=== PATIENT | female | born 1975 | race Caucasian/White ===

== ENCOUNTER 2019-10-31 13:40 | Emergency (ER) | payer OTHER ==
[2019-10-31 13:57] VITALS: PULSE 85
[2019-10-31] MEDS ORDERED: amLODIPine 5 MG Tab PO ONE (14:25)
[2019-10-31 14:36] VITALS: BP 146/102
--- NOTE | 2019-10-31 14:36 | EDM.PDOC ---
ED HPI GENERAL MEDICAL PROBLEM - General Chief Complaint: Cardiovascular Problem Stated Complaint: HIGH BLOOD PRESSURE Time Seen by Provider: 10/31/19 14:02 Source of Information: Reports: Patient History Limitations: Reports: No Limitations - History of Present Illness INITIAL COMMENTS - FREE TEXT/NARRATIVE: Patient is a 44-year-old female who presents with complaints of high blood pressure. She states that she checked her blood pressure at home and the bottom number was around 120. She does have a history of high blood pressure with her pregnancies and was recently told at her annual exam with her RIVETING MACHINE OPERATOR that her blood pressure was still elevated and that she should schedule an appointment with a primary care provider to establish treatment. Patient states that she was unable to get in till next Sunday with LINCOLN Lawson and didn't want to wait that long to start treatment. Her only symptom is that she feels some "fullness" in her head which she states is common for her when she has an elevated blood pressure. She denies any dizziness, headache, or vision changes. - Related Data Allergies Allergy/AdvReac Type Severity Reaction Status Date / Time No Known Allergies Allergy Verified 10/31/19 13:57 Home Meds: Home Meds amLODIPine [Norvasc] 5 mg PO DAILY #10 tab 10/31/19 [Rx] Past Medical History - Past Health History Medical/Surgical History: Denies Medical/Surgical History - Past Surgical History HEENT Surgical History: Reports: Tonsillectomy Female Surgical History: Reports: Breast Reduction, Section Social & Family History - Tobacco Use Smoking Status *Q: Never Smoker - Caffeine Use Caffeine Use: Reports: Coffee, Soda ED ROS GENERAL - Review of Systems Review Of Systems: See Below Constitutional: Reports: No Symptoms. Denies: Fever, Chills HEENT: Reports: No Symptoms. Denies: Vision Change Respiratory: Reports: No Symptoms Cardiovascular: Reports: No Symptoms Endocrine: Reports: No Symptoms GI/Abdominal: Reports: No Symptoms : Reports: No Symptoms Musculoskeletal: Reports: No Symptoms Skin: Reports: No Symptoms Neurological: Reports: No Symptoms, Other ("fullness" in her head). Denies: Dizziness, Headache Psychiatric: Reports: No Symptoms Hematologic/Lymphatic: Reports: No Symptoms Immunologic: Reports: No Symptoms ED EXAM, GENERAL - Physical Exam Exam: See Below Exam Limited By: No Limitations General Appearance: Alert, WD/WN, No Apparent Distress Head: Atraumatic, Normocephalic Respiratory/Chest: No Respiratory Distress, Lungs Clear, Normal Breath Sounds, No Accessory Muscle Use, Chest Non-Tender Cardiovascular: Normal Peripheral Pulses, Regular Rate, Rhythm, No Edema, No Murmur Neurological: Alert, Oriented, Normal Cognition Psychiatric: Normal Affect, Normal Mood Skin Exam: Warm, Dry, Intact, Normal Color, No Rash Course - Vital Signs Last Recorded V/S: Last Vital Signs Temp 98.2 F 10/31/19 13:53 Pulse 85 10/31/19 13:53 Resp 18 10/31/19 13:53 BP 188/118 H 10/31/19 13:53 Pulse Ox 98 10/31/19 13:53 - Orders/Labs/Meds Meds: Medications Discontinued Medications Generic Name Dose Route Start Last Admin Trade Name Alanna PRN Reason Stop Dose Admin Amlodipine Besylate 5 mg 10/31/19 14:25 Norvasc PO 10/31/19 14:26 ONETIME ONE - Re-Assessments/Exams Free Text/Narrative Re-Assessment/Exam: Patient is a 44-year-old female who presents with complaints of an elevated blood pressure today. She states that she checked it at home and the bottom number was around 120 which was concerning for her. Looking back in her records from the clinic her previous blood pressure reading was 150/100 on October 13. Her initial blood pressure reading in the ER was 168/118. The last blood pressure reading was 146/102. We'll start the patient on amlodipine 5 mg daily. I will give her enough pills to get her through until she sees LINCOLN Lawson on Sunday of next week. First dose was given in the ER today. Discharge instructions as documented. Departure - Departure Time of Disposition: 14:36 Disposition: Home, Self-Care 01 Condition: Good Clinical Impression: Hypertension Qualifiers: Hypertension type: unspecified Qualified Code(s): I10 - Essential (primary) hypertension Prescriptions: amLODIPine [Norvasc] 5 mg PO DAILY #10 tab Instructions: Hypertension Referrals: Cailin Qureshi NP [Primary Care Provider] - Kenyetta Ortega PA-C [Physician Oxide Furnace Tender] - Additional Instructions: You were seen in the emergency department today with an elevated blood pressure. You were given amlodipine 5 mg today in the ER. A prescription for this medication has also been sent to [facility] in [place]. Take this once daily. There are enough tabs to get she threw until you see Kenyetta Ortega. We also recommend that you check your blood pressures daily and keep a log to take with to your appointment with Kenyetta. If you should experience any symptoms of headache, dizziness, or vision changes please return to the emergency department. Sepsis Event Note - Evaluation Sepsis Screening Result: No Definite Risk - Focused Exam Vital Signs: Vital Signs Temp Pulse Resp BP Pulse Ox 10/31/19 13:53 98.2 F 85 18 188/118 H 98 Date Exam was Performed: 10/31/19 Time Exam was Performed: 14:30
== END 2019-10-31 14:56 | disposition home or self-care (01) ==
LOC: JD.ED 13:40
DX: I10 Essential (primary) hypertension (principal)
CPT/HCPCS: 99283; A9270

== ENCOUNTER 2021-07-05 08:23 | Day surgery (SDC) | payer OTHER ==
[~2021-07-05 08:23] MED LIST: Lactated Ringers 1,000 ML IV SCH; Lidocaine 1%/Sod Bicarbonate in NS 8.4% 1 ML Syringe IDERM PRN; Sodium Chloride 0.9% 10 ML Syringe FLUSH PRN
[2021-07-05] MEDS ORDERED: Sodium Chloride 0.9% 50 ML SDV ONE (08:30)
[2021-07-05] MEDS ORDERED: Bupivacaine 0.5% 30 ML SDV ONE (08:30)
[2021-07-05] MEDS ORDERED: Lidocaine 1% with EPINEPHrine 1:100,000 10 ML MDV ONE (08:30)
[2021-07-05] MEDS ORDERED: Scopolamine 1.5 MG Transdermal Patch TOP ONE (08:55)
--- NOTE | 2021-07-05 08:55 | PCM.PREANE ---
Preanesthetic Assessment - Procedure Proposed Procedure: Laparoscopic assisted vaginal hysterectomy with bilateral salpingectomy, possible total abdominal hysterectomy - Anesthesia/Transfusion/Family Hx Anesthesia History: Prior Anesthesia Without Reaction Family History of Anesthesia Reaction: No Transfusion History: No Prior Transfusion(s) Intubation History: Unknown - Review of Systems General: No Symptoms Pulmonary: No Symptoms Cardiovascular: No Symptoms Gastrointestinal: No Symptoms Neurological: No Symptoms Other: Reports: Anxiety - Physical Assessment NPO Status Date: 07/04/21 NPO Status Time: 21:00 Vital Signs: BP 138/100 HR 93 97.6 RR 16 97% Height: 1.6 m Weight: 73 kg ASA Class: 2 Mental Status: Alert & Oriented x3 Airway Class: Mallampati = 2 Dentition: Reports: Normal Dentition, Caries Thyro-Mental Finger Breadths: 3 Mouth Opening Finger Breadths: 2 ROM/Head Extension: Full Lungs: Clear to Auscultation, Normal Respiratory Effort Cardiovascular: Regular Rate, Regular Rhythm, No Murmurs - Lab Values: Labs reviewed and okay to proceed - Imaging/EKG Impressions: EKG NSR HR 65 - Allergies Allergies/Adverse Reactions: Allergies Allergy/AdvReac Type Severity Reaction Status Date / Time No Known Allergies Allergy Verified 10/31/19 13:57 - Blood Blood Available: No Product(s) Available: None - Anesthesia Plan Pre-Op Medication Ordered: Other (Scope patch) - Acknowledgements Anesthesia Type Planned: General Anesthesia Pt an Appropriate Candidate for the Planned Anesthesia: Yes Alternatives and Risks of Anesthesia Discussed w Pt/Guardian: Yes Pt/Guardian Understands and Agrees with Anesthesia Plan: Yes Additional Comments: Discussed elevated diastolic pressure and the patient taking losartan this morning with SARAH Mack since he will be taking care of patient intra- operatively.He is okay with proceeding with case. PreAnesthesia Questionnaire - Past Health History Medical/Surgical History: Denies Medical/Surgical History Cardiovascular History: Reports: High Cholesterol, Hypertension Respiratory History: Reports: None Gastrointestinal History: Reports: None Genitourinary History: Reports: None CHROME POLISHER History: Reports: Fibroids, Spontaneous Neurological History: Reports: Migraines Psychiatric History: Reports: Anxiety Endocrine/Metabolic History: Reports: None Hematologic History: Reports: None Immunologic History: Reports: None Oncologic (Cancer) History: Reports: None Other Dermatologic History: neoplasm of skin lesion - Past Surgical History HEENT Surgical History: Reports: Tonsillectomy Female Surgical History: Reports: Breast Reduction, Section, Cervical Conization - SUBSTANCE USE Tobacco Use Status *Q: Never Tobacco User Second Hand Smoke Exposure: No Days Per Week of Alcohol Use: 0 Number of Drinks Per Day: 0 Total Drinks Per Week: 0 Recreational Drug Use History: No - HOME MEDS Home Medications: Home Meds amLODIPine [Norvasc] 5 mg PO DAILY #10 tab 10/31/19 [Rx] - CURRENT (IN HOUSE) MEDS Current Meds: Current Medications Lactated Ringer's (Ringers, Lactated) 1,000 mls @ 125 mls/hr IV ASDIRECTED NOEL Stop: 07/05/21 23:00 Lidocaine/Sodium Bicarbonate (Lidocaine 1%/Sod Bicarbonate In Ns 8.4% 1 Ml Syringe) 0.25 ml IDERM ONETIME PRN PRN Reason: Prior to IV Start Stop: 07/05/21 18:00 Sodium Chloride (Sodium Chloride 0.9% 10 Ml Syringe) 10 ml FLUSH ASDIRECTED PRN PRN Reason: Keep Vein Open Stop: 07/05/21 18:00 Discontinued Medications Bupivacaine HCl (Bupivacaine 0.5% 30 Ml Sdv) Confirm Administered Dose 30 ml .ROUTE .STK-MED ONE Stop: 07/05/21 08:31 Lidocaine/Epinephrine (Lidocaine 1% With Epinephrine 1:100,000 10 Ml Mdv) Confirm Administered Dose 10 ml .ROUTE .STK-MED ONE Stop: 07/05/21 08:31 Sodium Chloride (Sodium Chloride 0.9% 50 Ml Sdv) Confirm Administered Dose 50 ml .ROUTE .STK-MED ONE Stop: 07/05/21 08:31
[2021-07-05] MEDS ORDERED: fentaNYL 250 MCG/5 ML SDV ONE (09:19)
[2021-07-05] MEDS ORDERED: Ketorolac 30 MG/ML SDV ONE (09:19)
[2021-07-05] MEDS ORDERED: Propofol 200 MG/20 ML SDV ONE (09:19)
[2021-07-05] MEDS ORDERED: Ondansetron 4 MG/2 ML SDV ONE (09:19)
[2021-07-05] MEDS ORDERED: Rocuronium 50 MG/5 ML Vial ONE (09:19)
[2021-07-05] MEDS ORDERED: Lidocaine 1% 4 ML ONE (09:19)
[2021-07-05] MEDS ORDERED: Midazolam 1 MG/ML 2 ML SDV ONE (09:19)
[2021-07-05] MEDS ORDERED: ceFAZolin 1 GM Vial ONE (09:20)
[2021-07-05] MEDS ORDERED: HYDROmorphone 0.5 MG/0.5 ML Syringe ONE ×2 (09:49→09:50)
[2021-07-05] MEDS ORDERED: Lactated Ringers 1,000 ML ONE (09:56)
[2021-07-05] MEDS ORDERED: Dexamethasone 4 MG/ML 5 ML MDV ONE (09:58)
[2021-07-05] MEDS ORDERED: Ondansetron 4 MG/2 ML SDV IVPUSH PRN (10:32)
[2021-07-05] MEDS ORDERED: Acetaminophen/oxyCODONE 325-5 MG Tab PO PRN (10:32)
--- NOTE | 2021-07-05 10:38 | PCM.OPNOTE ---
- General Post-Op/Procedure Note Date of Surgery/Procedure: 07/05/21 Operative Procedure(s): Total vaginal hysterectomy with bilateral salpingectomy Findings: Uterus is approximately 3 times normal size. Multiple uterine fibroids present. Right ovary had a 4 cm simple cyst present. Blood-tinged fluid present within the cyst at the time of drainage. Left ovary looked normal. Fallopian tubes were normal. Pre Op Diagnosis: 1. Menorrhagia. 2. Abnormal uterine bleeding. 3. Uterine fibroids Post-Op Diagnosis: Same Anesthesia Technique: General ET Tube Other Anesthesia Type: Lidocaine with [id number] cclocal Primary Surgeon: Viral Jolly Secondary Surgeon: See Calle Anesthesia Provider: Frederick Lyn Reason Dry Wall Installer Was Necessary: Assistance, retraction, patient safety, quality of care. Pathology: Uterus and bilateral tubes in the same specimen container. Fluid Replacement, Intraop: 1,700 EBL in mLs: 100 Complications: None Condition: Good Free Text/Narrative:: Surgery duration: 38 minutes Procedure: The patient was placed in supine position on the operating table. General endotracheal anesthesia was accomplished. After positioning, and adequate prep and drape, the procedure was then performed. Sterile speculum was placed in the vagina and cervix was visualized. Cervix was injected with lidocaine quarter percent with epinephrine-20 mL used. A full circumference incision was made in the cervical epithelium. The bladder was pushed well back off cervix. Posterior cul-de-sac was then entered sharply without problems. Left uterosacral was crossclamped with a Enseal vessel closure system. The left uterosacral and then the right uterosacral ligament pedicles were developed using the Enseal system. The anterior cul-de-sac was then entered without problems and the uterine vasculature, cardinal ligament and broad ligament then developed using Enseal vessel closure system. The uterus was inverted at this time and upper broad ligament fallopian tube pedicles were crossclamped with Radha clamps. Specimen was totally removed. Both these pedicles were then secured with Enseal vessel closure system. Left and right fallopian tube was normal in appearance. Using Enseal vessel closure system each of the tubes was then removed and sent with the specimen. The patient was found to be hemostatically intact at this time. Vaginal cuff was sutured for hemostatic reasons with a running locked suture of 0 Monocryl from the 2 o'clock position to the 10 o'clock position posteriorly. Vaginal cuff was then closed from right to left side with a running locked suture of 0 Monocryl. Patient was returned to supine position and awakened from general endotracheal anesthesia. She tolerated the procedure and left the operating room in satisfactory condition.
[2021-07-05] MEDS ORDERED: HYDROmorphone 0.5 MG/0.5 ML Syringe IVPUSH PRN (10:45)
--- NOTE | 2021-07-05 10:46 | PCM.POSTAN ---
POST ANESTHESIA ASSESSMENT - MENTAL STATUS Mental Status: Somnolent - VITAL SIGNS Vital Signs: Last Vital Signs Temp 36.4 C 07/05/21 08:20 Pulse 93 07/05/21 08:20 Resp 16 07/05/21 08:20 BP 138/100 H 07/05/21 08:20 Pulse Ox 97 07/05/21 08:20 - RESPIRATORY Respiratory Status: Respiratory Rate WNL, Airway Patent, O2 Saturation Stable, Supplemental Oxygen - CARDIOVASCULAR CV Status: Pulse Rate WNL, Blood Pressure Stable - GASTROINTESTINAL GI Status: No Symptoms - PAIN Pain Score: 0 - POST OP HYDRATION Hydration Status: Adequate & Stable - OBSERVATIONS Free Text/Narrative:: no anesthesia complications noted
[2021-07-05] MEDS: fentaNYL 100 MCG/2 ML SDV IVPUSH PRN ×2 (11:00→11:21)
--- NOTE | 2021-07-05 11:46 | PCM48HPAN ---
Post Anesthesia Note - EVALUATION WITHIN 48HRS OF ANESTHETIC Vital Signs in Normal Range: Yes Patient Participated in Evaluation: Yes Respiratory Function Stable: Yes Airway Patent: Yes Cardiovascular Function Stable: Yes Hydration Status Stable: Yes Pain Control Satisfactory: Yes Nausea and Vomiting Control Satisfactory: Yes Mental Status Recovered: Yes Vital Signs: Last Vital Signs Temp 36.7 C 07/05/21 10:38 Pulse 74 07/05/21 11:33 Resp 12 07/05/21 11:33 BP 115/79 07/05/21 11:33 Pulse Ox 95 07/05/21 11:33 - COMMENTS/OBSERVATIONS Free Text/Narrative:: no anesthesia complications noted
[2021-07-05] MEDS ORDERED: Ketorolac 30 MG/ML SDV IVPUSH SCH (15:30)
[2021-07-05 15:46] VITALS: BP 116/79; PULSE 86
[2021-07-05] MEDS ORDERED: Ibuprofen 600 MG Tab PO PRN (21:30)
== END 2021-07-05 15:16 | disposition home or self-care (01) ==
LOC: JD.SDS 08:23
PROVIDERS: ATTEND Obstetrics & Gynecology
DX: D25.2 Subserosal leiomyoma of uterus (principal); N80.0 Endometriosis of uterus; N87.9 Dysplasia of cervix uteri, unspecified; N72 Inflammatory disease of cervix uteri; N88.8 Other specified noninflammatory disorders of cervix uteri; N80.2 Endometriosis of fallopian tube; N83.8 Other noninflammatory disorders of ovary, fallopian tube and broad ligament; D25.1 Intramural leiomyoma of uterus; E78.00 Pure hypercholesterolemia, unspecified; G43.909 Migraine, unspecified, not intractable, without status migrainosus; Z79.899 Other long term (current) drug therapy; Z98.890 Other specified postprocedural states; I10 Essential (primary) hypertension
CPT/HCPCS: 58262; A9270; J0690; J1100; J1170; J1885; J2250; J2405; J2704; J3010; J3490; J7120; 00944; 88305